=== PATIENT | female | born 1950 | race Caucasian/White ===

== ENCOUNTER 2016-02-25 11:35 | Emergency (ER) | payer MEDICARE, MEDICAID ==
[2016-02-25] MEDS ORDERED: DIPHENHYDRAMINE 50 MG/ML VIAL ONE (14:38)
[2016-02-25] MEDS ORDERED: KETOROLAC 30 MG/ML VIAL ONE ×2 (14:38→16:03)
[2016-02-25] MEDS ORDERED: METOCLOPRAMIDE 10 MG/2 ML VIAL ONE (14:38)
[2016-02-25] MEDS ORDERED: HALOPERIDOL 5 MG/ML VIAL ONE (16:03)
== END 2016-02-25 16:40 | disposition home or self-care (01) ==
LOC: ER 11:35
CPT/HCPCS: 36415 ×2; 70450 ×2; 80053 ×2; 83690 ×2; 85025 ×2; 96374 ×2; 96375 ×2; 96376 ×2; 99284; J1885